=== PATIENT | male | born 1960 | race American Indian/Alaskan Native ===

== ENCOUNTER 2016-07-30 20:33 | Emergency (ER) | payer OTHER ==
[2016-07-30 21:03] VITALS: BP 125/84
[2016-07-30 22:12] LABS: Hematocrit 39.7 % (35.5-45.6); Hemoglobin 13.1 gm/dl (11.8-15.2); Mean Corpuscular HGB Conc 33 % (32-34); Mean Corpuscular Hemoglobin 32 pg (28-32); Mean Corpuscular Volume 96 fl (84-94); Platelet Count 224 K/mm3 (140-440); Red Blood Count 4.15 M/mm3 (3.65-5.03); Red Cell Distribution Width 14.3 % (13.2-15.2); White Blood Count 10.1 K/mm3 (4.5-11.0)
[2016-07-30 22:54] LABS: Anion Gap 18 mmol/L; Blood Urea Nitrogen 7 mg/dL (9-20); Calcium 8.5 mg/dL (8.4-10.2); Carbon Dioxide 24 mmol/L (22-30); Chloride 103.6 mmol/L (98-107); Glucose 87 mg/dL (75-100); Potassium 3.6 mmol/L (3.6-5.0); Sodium 142 mmol/L (137-145)
--- NOTE | 2016-07-31 00:39 | XRay Report ---
FINAL REPORT EXAM: XR CHEST ROUTINE 2V HISTORY: chest pain TECHNIQUE: Frontal and lateral chest x-ray. PRIORS: None. FINDINGS: Cardiac and mediastinal silhouette within normal limits. Lungs are normally expanded. No focal consolidation, pleural effusion or apparent pneumothorax. IMPRESSION: 1. No acute findings.
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
== END 2016-07-31 01:22 | disposition home or self-care (01) ==
LOC: ED 20:33
DX: J32.1 Chronic frontal sinusitis (principal); J45.909 Unspecified asthma, uncomplicated; F17.200 Nicotine dependence, unspecified, uncomplicated
CPT/HCPCS: 36415; 71020; 80048; 85027; 93005; 93010; 99283